=== PATIENT | male | born 1975 | race African-American/Black ===

== ENCOUNTER 2016-03-11 13:16 | Emergency (ER) | payer MEDICARE, MEDICAID ==
[2016-03-11 13:16] VITALS: BMI 20.9
[2016-03-11 13:51] VITALS: BP 133/87; PULSE 95; TEMP 98.6
[2016-03-11] MEDS ORDERED: ALBUTEROL 6.7 GM MDI INH ONE (14:08)
--- NOTE | 2016-03-11 14:11 | EDPRACDOC ---
- General Information Stated Complaint: COUGH/JIM/ACHY Time Seen by Provider: 03/11/16 14:05 Information Source: Patient Home Medications: Home Medications Sulfamethoxazole/Trimethoprim [Bactrim Ds Tablet] 1 tab PO BID #14 tab 10/02/14 Levofloxacin [Levaquin] 750 mg PO DAILY #7 tab 03/11/16 Prednisone [Deltasone, Orasone] 20 mg PO DAILY #20 tab 03/11/16 Allergies/Adverse Reactions: Allergies Allergy/AdvReac Type Severity Reaction Status Date / Time No Known Allergies Allergy Verified 10/02/14 13:20 - History of Present Illness Onset: 1-2 weeks HPI: Pt c/o chest pain, green productive cough, congestion, body aches, sob x 1-2 weeks. Denies earache, sore throat, abd pain, n/v, changes in bowel or bladder, leg swelling, rash. Chest Pain Location: Reports: Substernal Pain Radiation: Reports: None Symptoms Occur: Reports: Gradually Cardiac Risk Factors: Reports: Smoker Pain Came On: Reports: Suddenly (with cough or smoking) Pain Status: Present Now Pain Description: Reports: Sharp Pain Severity: Mild Pain Worsens With: Reports: Coughing, Breathing, Movement Pain Improves With: Reports: Nothing Associated Signs and Symptoms: Reports: SOB ED Past Medical History - History Reviewed Yes Nurses notes reviewed and agree except as marked - Social Medical History Smoking Status: Heavy tobacco smoker (5 or more cigarettes/day or daily pipe/ cigar) Social History: Reports: Marijuana Use ETOH: Social Substance Abuse: Illicit Drugs EDM Review of Systems - Review of Systems Constitutional: No Symptoms Reported. negative: Fever, Chills, Weakness, Fatigue, Loss of Appetite Ears: No Symptoms Reported. negative: Pain, Hearing Loss, Drainage, Ear Pulling Throat: No Symptoms Reported. negative: Pain, Swelling Nose: Congestion Mouth: No Symptoms Reported. negative: Pain, Drooling Respiratory: Cough, Shortness of Breath Cardiovascular: Chest Pain Gastrointestinal: No Symptoms Reported. negative: Pain, Constipation, Nausea, Vomiting, Diarrhea, Melena, Formula Intolerance Genitourinary: No Symptoms Reported. negative: Dysuria, Hematuria, Frequency, Discharge, Bleeding, Testicular Pain, Neurological: No Symptoms Reported. negative: Headache, Dizziness, Seizure, Numbness, Weakness, Speech Difficulty, Gait Difficulty Musculoskeletal: No Symptoms Reported. negative: Neck, Chestwall, Ribs, Back, Shoulder, Arm, Elbow, Forearm, Wrist, Hand, Pelvis, Hip, Femur, Knee, Leg, Ankle , Foot Integumentary: No Symptoms Reported. negative: Itching, Rash, Bruising, Wound Allergic/Immunologic: No Symptoms Reported. negative: Hives, Itching Hematologic: No Symptoms Reported. negative: Lymphadenopathy, Easy Bruising, Easy Bleeding Psychiatric: No Symptoms Reported. negative: Anxiety, Depression, Hallucinations, Insomnia, Suicidal - Physical Exam Constitutional: Alert Oriented to: Time, Person, Place Last recorded Vital Signs: Last Vital Signs Temp 98.6 F 03/11/16 13:51 Pulse 95 03/11/16 13:51 Resp 18 03/11/16 13:51 BP 133/87 03/11/16 13:51 Pulse Ox 98 03/11/16 13:51 Oxygen Pulse Oxygen Saturation 98 O2 Device Room Air Oxygen Flow Rate Fraction of Inspired Oxygen ( FIO2) - HEENT Head: Normal ( normocephalic) Eye Exam: Normal (PERRL, EOMI, Sclera white) Oropharynx: Normal (Pharynx:Moist without exudate,Gums-no swelling) Tympanic Membrane: Normal ENT EAC: Normal Nose: No Symptoms Reported (septum midline) Neck: Normal (FROM, trachea at midline) - Respiratory/Cardiovascular Respiratory: Rales (LLL) Cardiovascular: Normal (RRR without murmur, gallop or rub) - GI Auscultation: Normal (NABS) Palpation: Normal (Soft,No rebound or guarding, non distended) Tenderness: Non tender - Musculoskeletal Back: Normal (Non-Tender) Extremities: Normal (Normal tone, Pulses 2+ No cyanosis or edema, FROM) - Integumentary Skin: Normal, Warm, Dry Lymphatics: Normal (no adenopathy) - Neurologic Memory Impaired: Normal Motor Function: Normal (Normal tone, Pulses 2+ No cyanosis or edema, FROM) Mood Description: Normal Perception: Normal ED Chest Pain Exam - Respiratory/Cardiovascular Respiratory: Normal - CTA (clear to auscultation without adventitious sounds) Cardiovascular/Chest: Normal (RRR without murmur, gallop or rub) Edema: negative: 1+, 2+, 3+, 4+, 5, 6 Chest Palpation: Tender, Reproduces Pain - Differential Diagnosis Chest wall pain, Esophageal reflux/spasm, Gastritis, Pneumonia - Action ASA given in the ED: No - EKG EKG #1 EKG Time: 14:14 Rate: bpm: 87 [place]: Normal Rhythm: NSR Block: None ST: Normal - Diagnostic Imaging Chest Image interpreted by: Radiologist IMPRESSION: Patchy infiltrate left base. Lungs elsewhere clear. Decision Time to Discharge: 15:04 - Departure Disposition: Home Condition: Good Final Diagnosis: LLL pneumonia Qualifiers: Pneumonia type: due to unspecified organism Qualified Code(s): J18.1 - Lobar pneumonia, unspecified organism Instructions: Community Acquired Pneumonia (ED) Education/Counseling Given To: Patient Education/Counseling Given Regarding: Diagnosis, Treatment, Follow Up Referrals: None,No Provider [Primary Care Provider] - One Week Addy Erickson MD [Staff Physician] - One Week Prescriptions: Levofloxacin [Levaquin] 750 mg PO DAILY #7 tab Prednisone [Deltasone, Orasone] 20 mg PO DAILY #20 tab Additional Instructions: Albuterol MDI 1-2 puffs every 4-6 hours as needed for shortness of breath.
--- NOTE | 2016-03-11 15:00 | DIRPT ---
CLINICAL DATA: Chest pain and cough. Shortness of breath for 2 weeks EXAM: CHEST 2 VIEW COMPARISON: October 02, 2014 FINDINGS: There is patchy infiltrate in the left base. Lungs elsewhere clear. Heart size and pulmonary vascular normal. No adenopathy. No bone lesions. No pneumothorax. IMPRESSION: Patchy infiltrate left base. Lungs elsewhere clear. Electronically Signed By: Lenard Mitchell III, M.D. On: 03/11/2016 14:58
== END 2016-03-11 15:13 | disposition home or self-care (01) ==
LOC: EDMC 13:16
DX: J18.1 Lobar pneumonia, unspecified organism (principal)
CPT/HCPCS: 71020; 93005; 94640; 99282; A9270; J3490